=== PATIENT | male | born 1975 | race Hispanic/Latino ===

== ENCOUNTER 2021-05-27 05:43 | Day surgery (SDC) | payer BC ==
[2021-05-23 13:45] VITALS: BMI 33.5
[2021-05-27] MEDS ORDERED: Lidocaine 1% MPF 2 ML VIAL ONE (06:36)
[2021-05-27] MEDS ORDERED: PROPOFOL 40 ML ONE (07:21)
[2021-05-27] MEDS ORDERED: Fentanyl 100 MCG/2 ML VIAL ONE (07:21)
[2021-05-27] MEDS ORDERED: Lidocaine 2% PF 100 mg/5 ml Syringe ONE (07:22)
== END 2021-05-27 09:20 | disposition home or self-care (01) ==
LOC: CSHSDC 05:43
PROVIDERS: ATTEND Internal Medicine Gastroenterology
PROC: 0DBN8ZZ Excision of Sigmoid Colon, Via Natural or Artificial Opening Endoscopic (ICD-10-PCS; principal; 2021-05-27)
DX: Z12.11 Encounter for screening for malignant neoplasm of colon (principal); K57.30 Diverticulosis of large intestine without perforation or abscess without bleeding; F32.9 Major depressive disorder, single episode, unspecified
CPT/HCPCS: 88305; J2001; J2704; J3010